=== PATIENT | female | born 1965 | race Caucasian/White ===

== ENCOUNTER 2020-10-13 21:14 | Emergency (ER) | payer OTHER ==
[2020-10-13 22:22] VITALS: BP 139/88; PULSE 94; RESP 20; TEMP 98.2
[2020-10-13 23:24] LABS: Appearance,Urine Clear (Clear); Basophils # (A) 0.1 k/uL (0-0.2); Basophils % (A) 1 %; Bilirubin,Urine Negative (Negative); Blood,Urine Negative (Negative); Color,Urine Light Yellow; Eosinophils # (A) 0.2 k/uL (0-0.7); Eosinophils % (A) 2 %; Glucose,Urine (UA) 4+ (Negative); HCT 46.4 % (34.0-46.0); HGB 16.8 gm/dL (11.4-16.0); Ketones,Urine 1+ (Negative); Leukocyte Esterase,Urine Negative (Negative); Lymphocytes # (A) 4.2 k/uL (1.0-4.8); Lymphocytes % (A) 36 %; MCH 32.4 pg (25.0-35.0); MCHC 36.3 g/dL (31.0-37.0); MCV 89.2 fL (80.0-100.0); Mean Platelet Volume 7.6; Monocytes # (A) 0.7 k/uL (0-1.0); Monocytes % (A) 6 %; Neutrophils # (A) 6.1 k/uL (1.3-7.7); Neutrophils % (A) 53 %; Nitrite,Urine Negative (Negative); PH, Urine 5.5 (5.0-8.0); Platelet Count 336 k/uL (150-450); Protein,Urine Negative (Negative); RBC 5.21 m/uL (3.80-5.40); RDW 11.7 % (11.5-15.5); Urobilinogen,Urine <2.0 mg/dL (<2.0); WBC 11.6 k/uL (3.8-10.6)
--- NOTE | 2020-10-13 23:30 | ED ---
Abdominal Pain HPI - General Chief Complaint: Abdominal Pain Stated Complaint: Stomach pains Time Seen by Provider: 10/13/20 22:49 Source: patient Mode of arrival: ambulatory Limitations: no limitations - History of Present Illness Initial Comments: This patient is 55-year-old woman presenting to be evaluated for she states up to 6 months of upper abdominal pain area the pain has been worse over the past few days. She states that she also has had a change in stool recently. She is having mostly liquid bowel movements. She states the pain is worse after she eats. SHe hasn't noticed any relieving factors. MD Complaint: abdominal pain Onset/Timin -: month(s) Location: LUQ, RUQ, epigastric Radiation: none Migration to: no migration Severity: moderate Quality: aching Consistency: constant Improves With: nothing Worsens With: eating - Related Data Previous Rx's Medication Instructions Recorded Dicyclomine [Bentyl] 20 mg PO QID #15 tablet 10/14/20 Allergies Allergy/AdvReac Type Severity Reaction Status Date / Time guaifenesin [From Robitussin] Allergy Swelling Verified 10/13/20 22:23 Review of Systems ROS Statement: Those systems with pertinent positive or pertinent negative responses have been documented in the HPI. ROS Other: All systems not noted in ROS Statement are negative. Constitutional: Denies: fever, chills Respiratory: Denies: cough, dyspnea Cardiovascular: Denies: chest pain, palpitations, edema Gastrointestinal: Reports: abdominal pain, nausea, diarrhea. Denies: vomiting, constipation, melena, hematochezia Genitourinary: Denies: dysuria, frequency, hematuria Musculoskeletal: Denies: back pain Skin: Denies: rash Neurological: Denies: headache, weakness, numbness Past Medical History Past Medical History: Diabetes Mellitus, Hyperlipidemia, Hypertension History of Any Multi-Drug Resistant Organisms: None Reported Past Surgical History: Section, Hysterectomy Additional Past Surgical History / Comment(s): lumpectomy Past Psychological History: Anxiety Smoking Status: Current every day smoker Past Alcohol Use History: None Reported Past Drug Use History: None Reported General Exam Limitations: no limitations General appearance: alert, in no apparent distress Head exam: Present: atraumatic, normocephalic Eye exam: Present: normal appearance. Absent: scleral icterus, conjunctival injection ENT exam: Present: normal oropharynx Neck exam: Present: normal inspection Respiratory exam: Present: normal lung sounds bilaterally. Absent: respiratory distress, wheezes, rales, rhonchi, stridor Cardiovascular Exam: Present: regular rate, normal rhythm, normal heart sounds. Absent: systolic murmur, diastolic murmur, rubs, gallop GI/Abdominal exam: Present: soft, tenderness (Is mild upper abdominal tenderness no rebound or guarding), normal bowel sounds. Absent: distended, guarding, rebound, rigid, organomegaly, mass, pulsatile mass, hernia Extremities exam: Present: normal inspection, normal capillary refill. Absent: pedal edema, calf tenderness Back exam: Present: normal inspection. Absent: CVA tenderness (R), CVA tenderness (L) Neurological exam: Present: alert Skin exam: Present: warm, dry, intact, normal color. Absent: rash Course Vital Signs 10/13/20 22:18 Temperature 98.2 F Pulse Rate 94 Respiratory 20 Rate Blood Pressure 139/88 O2 Sat by Pulse 98 Oximetry Medical Decision Making - Lab Data Result diagrams: 10/13/20 23:06 10/13/20 23:06 Lab Results 10/13/20 10/13/20 10/13/20 Range/Units 23:06 23:06 23:06 WBC 11.6 H (3.8-10.6) k/uL RBC 5.21 (3.80-5.40) m/uL Hgb 16.8 H (11.4-16.0) gm/dL Hct 46.4 H (34.0-46.0) % MCV 89.2 (80.0-100.0) fL MCH 32.4 (25.0-35.0) pg MCHC 36.3 (31.0-37.0) g/dL RDW 11.7 (11.5-15.5) % Plt Count 336 (150-450) k/uL MPV 7.6 Neutrophils % 53 % Lymphocytes % 36 % Monocytes % 6 % Eosinophils % 2 % Basophils % 1 % Neutrophils # 6.1 (1.3-7.7) k/uL Lymphocytes # 4.2 (1.0-4.8) k/uL Monocytes # 0.7 (0-1.0) k/uL Eosinophils # 0.2 (0-0.7) k/uL Basophils # 0.1 (0-0.2) k/uL Sodium 136 L (137-145) mmol/L Potassium 3.9 (3.5-5.1) mmol/L Chloride 98 (98-107) mmol/L Carbon Dioxide 24 (22-30) mmol/L Anion Gap 14 mmol/L BUN 18 H (7-17) mg/dL Creatinine 0.52 (0.52-1.04) mg/dL Est GFR (CKD-EPI)AfAm >90 (>60 ml/min/1.73 sqM) Est GFR (CKD-EPI)NonAf >90 (>60 ml/min/1.73 sqM) Glucose 332 H (74-99) mg/dL Calcium 10.8 H (8.4-10.2) mg/dL Total Bilirubin 0.6 (0.2-1.3) mg/dL AST 22 (14-36) U/L ALT 21 (4-34) U/L Alkaline Phosphatase 140 H (38-126) U/L Total Protein 7.7 (6.3-8.2) g/dL Albumin 4.8 (3.5-5.0) g/dL Amylase 75 (30-110) U/L Lipase 837 H (23-300) U/L Urine Color Light Yellow Urine Appearance Clear (Clear) Urine pH 5.5 (5.0-8.0) Ur Specific [place] 1.046 H (1.001-1.035) Urine Protein Negative (Negative) Urine Glucose (UA) 4+ H (Negative) Urine Ketones 1+ H (Negative) Urine Blood Negative (Negative) Urine Nitrite Negative (Negative) Urine Bilirubin Negative (Negative) Urine Urobilinogen <2.0 (<2.0) mg/dL Ur Leukocyte Esterase Negative (Negative) Disposition Clinical Impression: Abdominal pain, Hyperglycemia Disposition: HOME SELF-CARE Condition: Good Instructions (If sedation given, give patient instructions): Abdominal Pain (ED), Diabetic Hyperglycemia (ED) Additional Instructions: Today your lipase was 837, follow-up to have this rechecked and ensure that is returning to normal. Prescriptions: Dicyclomine [Bentyl] 20 mg PO QID #15 tablet Is patient prescribed a controlled substance at d/c from ED?: No Referrals: None,Stated [Primary Care Provider] - 1-2 days Taran Ford MD [STAFF PHYSICIAN] - 1-2 days
--- NOTE | 2020-10-13 23:32 | XR ---
EXAMINATION TYPE: XR KUB DATE OF EXAM: 10/13/2020 COMPARISON: NONE HISTORY: Abdominal pain TECHNIQUE: 2 views upright FINDINGS: There is no sign of intestinal obstruction or pneumoperitoneum. Fecal pattern is normal. Th ere is evidence of some infiltrate in the left lower lobe behind the heart. There are no pathologic c alcifications over the kidneys. IMPRESSION: Nonacute abdomen. There is evidence for some left lower lobe pneumonia.
[2020-10-13 23:33] LABS: ALT 21 U/L (4-34); AST 22 U/L (14-36); African American GFR (CKD) >90 (>60 ml/min/1.73 sqM); Albumin 4.8 g/dL (3.5-5.0); Alkaline Phosphatase 140 U/L (38-126); Amylase 75 U/L (30-110); Anion Gap 14 mmol/L; Blood Urea Nitrogen 18 mg/dL (7-17); Calcium 10.8 mg/dL (8.4-10.2); Carbon Dioxide 24 mmol/L (22-30); Chloride 98 mmol/L (98-107); Glucose 332 mg/dL (74-99); Lipase 837 U/L (23-300); Non-African American GFR(CKD) >90 (>60 ml/min/1.73 sqM); Potassium 3.9 mmol/L (3.5-5.1); Sodium 136 mmol/L (137-145); Total Bilirubin 0.6 mg/dL (0.2-1.3); Total Protein 7.7 g/dL (6.3-8.2)
[2020-10-13 23:37] LABS: Specific Gravity,Urine 1.046 (1.001-1.035)
--- NOTE | 2020-10-14 00:11 | US ---
EXAMINATION TYPE: US abdomen limited DATE OF EXAM: 10/13/2020 COMPARISON: NONE CLINICAL HISTORY: attention RUQ. bloated, constipated, stomach pains ongoing for days EXAM MEASUREMENTS: Liver Length: 20.7 cm Gallbladder Wall: 0.2 cm CBD: 0.4 cm Right Kidney: 11.9 x 4.7 x 5.6 cm Pancreas: wnl Liver: very difficult to penetrate with focal fatty sparring seen adjacent to GB Gallbladder: wnl Evidence for sonographic Echeverria's sign: YES CBD: wnl Right Kidney: wnl IMPRESSION: There is some tenderness over the gallbladder. No gallstones or dilated ducts. Fatty infiltration of the liver.
[2020-10-14] MEDS ORDERED: MORPHINE SULFATE 4 MG/ML SYRINGE IV STA (00:55)
--- NOTE | 2020-10-14 00:59 | CT ---
EXAM: CT Abdomen and Pelvis Without Intravenous Contrast CLINICAL HISTORY: ITS.REASON CT Reason: abdominal pain TECHNIQUE: Axial computed tomography images of the abdomen and pelvis without intravenous contrast. CTDI is 11.07 mGy and DLP is 594.30 mGy-cm. This CT exam was performed using one or more of the following dose reduction techniques: automated exposure control, adjustment of the mA and/or kV according to patient size, and/or use of iterative reconstruction technique. COMPARISON: Ultrasound from October 13, 2020 FINDINGS: Lung bases: Unremarkable. No mass. No consolidation. ABDOMEN: Liver: There is fatty infiltration of the liver and hepatomegaly with the liver measuring 20 cm craniocaudad. No focal liver lesion is seen. Gallbladder and bile ducts: Unremarkable. No calcified stones. No ductal dilation. Pancreas: Unremarkable. No ductal dilation. Spleen: Unremarkable. No splenomegaly. Adrenals: Unremarkable. No mass. Kidneys and ureters: Nonobstructive 3 mm calyceal calculus in the upper pole of the left kidney. No hydronephrosis or ureterolithiasis is seen. Stomach and bowel: Unremarkable. No obstruction. No mucosal thickening. PELVIS: Appendix: Normal appendix pattern. No acute inflammatory changes are seen involving the bowel. Bladder: There is a 7 mm calculus in the anterior aspect of the urinary bladder. The bladder is mostly decompressed without surrounding inflammation. Reproductive: Unremarkable as visualized. ABDOMEN and PELVIS: Intraperitoneal space: Unremarkable. No free air. No significant fluid collection. Bones/joints: Mild degenerative changes in the lower lumbar spine. No acute fracture is seen. No dislocation. Soft tissues: Unremarkable. Vasculature: The abdominal aorta is mildly calcified but nondilated. Lymph nodes: Unremarkable. No enlarged lymph nodes. IMPRESSION: There is fatty infiltration of the liver and hepatomegaly with the liver measuring 20 cm craniocaudad. No focal liver lesion is seen. Normal appendix is an unremarkable bowel gas pattern. No acute inflammatory changes are seen involving the bowel.
== END 2020-10-14 02:00 | disposition home or self-care (01) ==
LOC: EC 21:14
DX: E11.65 Type 2 diabetes mellitus with hyperglycemia (principal); R10.9 Unspecified abdominal pain; E78.5 Hyperlipidemia, unspecified; I10 Essential (primary) hypertension; F41.9 Anxiety disorder, unspecified; F17.200 Nicotine dependence, unspecified, uncomplicated
CPT/HCPCS: 36415; 80053; 82150; 83690; 85025; 81003; 74018; 76705; 74176; 99284; 96374; J2270

== ENCOUNTER → 2022-10-04 | Outpatient (CLI) | payer OTHER ==
[2022-10-04 11:17] LABS: Basophils # (A) 0.08 X 10*3/uL (0.00-0.10); Basophils % (A) 1.1 %; Eosinophils # (A) 0.19 X 10*3/uL (0.04-0.35); Eosinophils % (A) 2.5 %; HCT 41.6 % (37.2-46.3); Immature Grans, Automated 0.3 %; Lymphocytes # (A) 2.93 X 10*3/uL (0.90-5.00); MCH 31.3 pg (27.0-32.0); MCHC 33.7 g/dL (32.0-37.0); MCV 93.1 fL (80.0-97.0); Mean Platelet Volume 9.6 fL (9.5-12.2); Monocytes # (A) 0.62 X 10*3/uL (0.20-1.00); Monocytes % (A) 8.2 %; NRBC Per 100 WBC 0 /100 WBCS (0.0-0.0); Neutrophils # (A) 3.68 X 10*3/uL (1.80-7.70); Neutrophils % (A) 48.9 %; Platelet Count 325 X 10*3/uL (140-440); RBC 4.47 X 10*6/uL (4.10-5.20); RDW 12.2 % (11.5-14.5); WBC 7.52 X 10*3/uL (4.50-10.00)
[2022-10-04 11:45] LABS: ALT 17 U/L (8-44); AST 11 U/L (13-35); Albumin 4.3 g/dL (3.8-4.9); Albumin/Globulin Ratio 1.89 (1.60-3.17); Alkaline Phosphatase 85 U/L (41-126); BUN/Creat Ratio 17.25 Ratio (12.00-20.00); Blood Urea Nitrogen 11.4 mg/dL (9.0-27.0); Calcium 9.7 mg/dL (8.7-10.3); Carbon Dioxide 26.3 mmol/L (20.0-27.5); Chloride 109 mmol/L (96-109); Chol/HDL Ratio 4.61 Ratio; Globulin 2.3 g/dL (1.6-3.3); Glucose 191 mg/dL (70-110); LDL Cholesterol,Calculated 61.7 mg/dL (0.0-131.0); Non-African American GFR(CKD) 96.6 (60.0-200.0); Potassium 5.4 mmol/L (3.5-5.5); Sodium 144 mmol/L (135-145); Total Protein 6.6 g/dL (6.2-8.2)
== END | disposition home or self-care (01) ==
LOC: LABWHC1 08:54
PROVIDERS: ATTEND Family Medicine
DX: E11.65 Type 2 diabetes mellitus with hyperglycemia (principal)
CPT/HCPCS: 36415; 80053; 80061; 82306; 83036; 84439; 84443; 85025

== ENCOUNTER → 2022-11-05 | Outpatient (CLI) | payer OTHER ==
--- NOTE | 2022-11-06 07:33 | CA ---
Transthoracic Echo Report Name: Suyapa Mckeon Age: 57 Gender: F : 1965 Exam Date: 11/05/2022 15:06 Exam Location: [facility] Ht (in): 64 Wt (lb): 163 Ordering Physician: Avelino Hair MD Attending/Referring Phys: Avelino Hair MD [employer] Counter Clerk Jessie Caballero, [facility] Procedure CPT: Indications: i10 Cardiac Hx: Technical Quality: Fair Contrast 1: Total Dose (mL): Contrast 2: Total Dose (mL): MEASUREMENTS (Male / Female) Normal Values 2D ECHO LV Diastolic Diameter PLAX 5.2 cm 4.2 - 5.9 / 3.9 - 5.3 cm LV Systolic Diameter PLAX 3.2 cm IVS Diastolic Thickness 1.2 cm 0.6 - 1.0 / 0.6 - 0.9 cm LVPW Diastolic Thickness 1.1 cm 0.6 - 1.0 / 0.6 - 0.9 cm LV Relative Wall Thickness 0.4 RV Internal Dim ED PLAX 3.1 cm LA Systolic Diameter LX 3.6 cm 3.0 - 4.0 / 2.7 - 3.8 cm LA Volume 44.3 cm??? 18 - 58 / 22 - 52 cm??? M-MODE Aortic Root Diameter MM 3.0 cm AV Cusp Separation MM 2.1 cm DOPPLER AV Peak Velocity 160.3 cm/s AV Peak Gradient 10.3 mmHg MV Area PHT 3.0 cm??? Mitral E Point Velocity 75.6 cm/s Mitral A Point Velocity 106.3 cm/s Mitral E to A Ratio 0.7 MV Deceleration Time 255.1 ms MV E' Velocity 8.4 cm/s Mitral E to MV E' Ratio 9.0 FINDINGS Left Ventricle Left ventricular ejection fraction is estimated at 55-60 %. Left ventricular cavity size normal. Mildly increased septal wall thickness. Mildly increased posterior wall thickness. Right Ventricle Normal right ventricular size and function. No TR unable to estimate the right ventricular systolic pressure. Right Atrium Normal right atrial size. Left Atrium Normal left atrial size. Mitral Valve Mitral valve thickened. No mitral stenosis, or prolapse.trace to mild mitral regurgitation. Aortic Valve Trileaflet aortic valve. No aortic valve stenosis or regurgitation. Tricuspid Valve Structurally normal tricuspid valve. No tricuspid stenosis, regurgitation or prolapse. Pulmonic Valve No pulmonic regurgitation.pulmonic valve not well visualized. Pericardium Normal pericardium. No pericardial effusion. Aorta Normal size aortic root and proximal ascending aorta. CONCLUSIONS 1. Normal ventricle size and systolic function with left ventricular hypertrophy 2. Trace to mild mitral regurgitation 3. No Pericardial effusion Previewed by: Dr. Timothy Kelly MD (Electronically Signed) Final Date: 06 Nov 2022 07:32
== END | disposition home or self-care (01) ==
LOC: RADECHMAIN 14:59
PROVIDERS: ATTEND Family Medicine
DX: I10 Essential (primary) hypertension (principal); M79.89 Other specified soft tissue disorders; I51.7 Cardiomegaly; I34.0 Nonrheumatic mitral (valve) insufficiency; R00.2 Palpitations
CPT/HCPCS: 93306

== ENCOUNTER → 2022-11-07 | Outpatient (CLI) | payer OTHER ==
--- NOTE | 2022-11-14 13:21 | P.HOLTER ---
48 Hour Holter monitor note: Patient wore a Holter monitor for 48 hrs from 11/07/2022 through 11/08/2022. Findings: Patient's baseline heart rate was normal sinus rhythm. There were no signficant atrial fibrillation, atrial flutter, or ventricular tachycardia episodes. There were no significant pauses greater than 2 seconds. Patient's minimum heart rate was 54. Patient's maximum heart rate was 98. Patient's average heart rate was 73. There were 3 patient activated events which corresponded with normal sinus rhythm There were rare PACs and rare PVCs representing 0.6% PVC burden. There were 5 brief SVT episodes lasting maximum of 6 beats and one ventricular triplet which were asymptomatic. Conclusions: 48 hour Holter monitor showing normal sinus rhythm with occasional PACs and PVCs as well as brief runs of SVT and 1 episode of 3 beat run of ventricular tachycardia.
--- NOTE | 2022-11-17 10:40 | HM ---
7 Day Event monitor note: Patient wore an event monitor for 7 days from 11/03/2022 through 11/10/2022. Findings: Patient's baseline heart rate was sinus rhythm. There were no significant atrial fibrillation, atrial flutter, or ventricular tachycardia episodes. There were no significant pauses greater than 2 seconds. There were a total of 79 patient activated and automatically captured events corresponding with sinus rhythm and sinus tachycardia. One of the dizzy episodes corresponded with 1 PVC. There were rare PACs and rare PVCs. Conclusions: 7 day event monitor showing normal sinus rhythm and sinus tachycardia. Patient activated events corresponding predominantly with sinus rhythm and sinus tachycardia and once with a loan PVC. [facility]
== END | disposition home or self-care (01) ==
LOC: RADECHMAIN 07:28
PROVIDERS: ATTEND Family Medicine
DX: I47.20 Ventricular tachycardia, unspecified (principal); R00.2 Palpitations; I10 Essential (primary) hypertension
CPT/HCPCS: 93225; 93226

== ENCOUNTER 2024-10-06 14:48 | Observation (INO) | payer OTHER ==
[2024-10-06] MEDS: ASPIRIN 81 MG PO STA (15:38)
[2024-10-06] MEDS: SODIUM CHLORIDE 0.9% 1,000 ML IV STA (15:38)
[2024-10-06 15:54] LABS: Basophils # (A) 0.1 k/uL (0-0.2); Basophils % (A) 1 %; Eosinophils # (A) 0.1 k/uL (0-0.7); Eosinophils % (A) 2 %; HCT 43.5 % (34.0-46.0); HGB 15.1 gm/dL (11.4-16.0); Lymphocytes # (A) 2.5 k/uL (1.0-4.8); Lymphocytes % (A) 31 %; MCH 32.1 pg (25.0-35.0); MCHC 34.7 g/dL (31.0-37.0); MCV 92.6 fL (80.0-100.0); Mean Platelet Volume 7.8; Monocytes # (A) 0.5 k/uL (0-1.0); Monocytes % (A) 6 %; Neutrophils # (A) 4.9 k/uL (1.3-7.7); Neutrophils % (A) 60 %; Platelet Count 325 k/uL (150-450); RDW 12.4 % (11.5-15.5); WBC 8.2 k/uL (3.8-10.6)
--- NOTE | 2024-10-06 16:05 | XR ---
EXAMINATION TYPE: XR chest 2V DATE OF EXAM: 10/06/2024 3:56 PM COMPARISON: None CLINICAL INDICATION: Female, 59 years old with history of Chest Pain; [facility] TECHNIQUE: XR chest 2V Frontal and lateral views of the chest. FINDINGS: Lungs/Pleura: There is no evidence of pleural effusion, focal consolidation, or pneumothorax. Pulmonary vascularity: Unremarkable. Heart/mediastinum: Cardiomediastinal silhouette is unremarkable. Musculoskeletal: No acute osseous pathology. IMPRESSION: No acute cardiopulmonary disease/process. [facility], , 10/06/2024 4:03 PM
[2024-10-06 16:09] LABS: ALT 18 U/L (4-34); AST 18 U/L (14-36); African American GFR (CKD) >90 (>60 ml/min/1.73 sqM); Albumin 4.4 g/dL (3.5-5.0); Alkaline Phosphatase 112 U/L (38-126); Amylase 48 U/L (30-110); Anion Gap 12 mmol/L; Blood Urea Nitrogen 14 mg/dL (7-17); Calcium 9.6 mg/dL (8.4-10.2); Carbon Dioxide 21 mmol/L (22-30); Chloride 103 mmol/L (98-107); Glucose 302 mg/dL (74-99); Lipase 205 U/L (23-300); Magnesium 1.5 mg/dL (1.6-2.3); Non-African American GFR(CKD) >90 (>60 ml/min/1.73 sqM); Sodium 136 mmol/L (137-145); Total Bilirubin 0.5 mg/dL (0.2-1.3)
[2024-10-06 16:16] LABS: INR 0.9 (<1.2); Prothrombin Time 9.9 sec (10.0-12.5)
[2024-10-06 16:18] LABS: NT-Pro-B-Type Natriuretic Pept 23 pg/mL
[2024-10-06 16:25] LABS: Appearance,Urine Cloudy (Clear); Bacteria,Urine Many /hpf; Bilirubin,Urine Negative (Negative); Blood,Urine Negative (Negative); Color,Urine Colorless; Glucose,Urine (UA) 4+ (Negative); Ketones,Urine Negative (Negative); Leukocyte Esterase,Urine Negative (Negative); Mucus,Urine Rare /hpf; Nitrite,Urine Negative (Negative); Protein,Urine Negative (Negative); RBC,Urine <1 /hpf (0-5); Specific Gravity,Urine 1.013 (1.001-1.035); Squamous Epithelial Cell,Urine 3 /hpf (0-4); Urobilinogen,Urine <2.0 mg/dL (<2.0); WBC,Urine 2 /hpf (0-5)
[2024-10-06 16:27] LABS: Partial Thromboplastin Time 21.4 sec (22.0-30.0)
[2024-10-06] MEDS: MAGNESIUM SULFATE-D5W PMX 1 GM in DEXTROSE/WATER 1 100ML.BAG IVPB ONE (16:33)
[2024-10-06] MEDS ORDERED: NALOXONE 0.4 MG/ML 1 ML VIAL IV PRN (17:08)
[2024-10-06] MEDS ORDERED: ACETAMINOPHEN TAB 325 MG TAB PO PRN (17:08)
[2024-10-06] MEDS ORDERED: ONDANSETRON 4 MG/2 ML VIAL IVP PRN (17:08)
--- NOTE | 2024-10-06 17:08 | ED ---
General Adult HPI - General Chief complaint: Chest Pain Stated complaint: Chest Pain Time Seen by Provider: 10/06/24 15:15 Source: patient, RN notes reviewed, old records reviewed Mode of arrival: ambulatory Limitations: no limitations - History of Present Illness Initial comments: Patient is a 59-year-old female who presents to the emergency department complaining of chest pain. Patient has a past medical history markable for diabetes, hypertension, hyperlipidemia. Also has a family history of cardiac disease. States that at approximately 1:30 PM she began experiencing a severe pressure sensation in the middle of her chest with radiation to her back. States that it subsided on its own since then. No known palliative or provocative factors. States she did not break out into a sweat and did not experience much nausea but did have some mild nausea. No emesis. No fevers or chills or cough. No significant exertion. No history of cardiac stents. No other acute complaints at this time. Presents for further evaluation at this time.States pain was approximately 5 out of 10 earlier and is currently 1 out of 10 at most. - Related Data Home Medications Medication Instructions Recorded Confirmed Atorvastatin [Lipitor] 40 mg PO HS 10/06/24 10/06/24 Metoprolol Succinate (ER) [Toprol 100 mg PO DAILY 10/06/24 10/06/24 Xl] lisinopriL 40 mg PO DAILY 10/06/24 10/06/24 metFORMIN HCL [Glucophage] 1,000 mg PO BID 10/06/24 10/06/24 sitaGLIPtin [Januvia] 100 mg PO DAILY 10/06/24 10/06/24 Allergies Allergy/AdvReac Type Severity Reaction Status Date / Time guaifenesin [From Robitussin] Allergy Swelling Verified 10/06/24 17:23 Review of Systems ROS Statement: Those systems with pertinent positive or pertinent negative responses have been documented in the HPI. Review of Systems: CONST: Denies fever EYES: Denies blurry vision ENT: Denies nasal congestion C/V: Endorses 1 out of 10 chest pain substernal. RESP: Denies shortness of breath GI: Denies abdominal pain : Denies dysuria SKIN: Denies rash. MSK: Denies joint pain. NEURO: Denies headache ROS Other: All systems not noted in ROS Statement are negative. Past Medical History Past Medical History: Diabetes Mellitus, Hyperlipidemia, Hypertension History of Any Multi-Drug Resistant Organisms: None Reported Past Surgical History: Section, Hysterectomy Additional Past Surgical History / Comment(s): lumpectomy Past Psychological History: Anxiety Smoking Status: Current every day smoker Past Alcohol Use History: None Reported Past Drug Use History: None Reported General Exam - General Exam Comments Initial Comments: General: Appears in no acute distress. HEAD: Normal with no signs of head trauma. EYES: PERRLA, EOMI, conjunctiva normal, no discharge. ENT: Hearing grossly intact, normal oropharynx. RESPIRATORY: Clear breath sounds bilaterally. No wheezes, rales, or rhonchi. C/V: Regular rate and rhythm. S1 and S2 auscultated, no edema, peripheral pulses 2+ and intact throughout. Chest pain is not reproducible on palpation. ABD: Abd is soft, nontender, nondistended EXT: Normal range of motion, no obvious deformity SKIN: No rashes or lesions observed on exposed skin. NEURO: Alert and oriented x 4. Limitations: no limitations Course Vital Signs 10/06/24 10/06/24 14:50 15:20 Temperature 98.5 F Pulse Rate 79 66 Respiratory 16 12 Rate Blood Pressure 149/82 129/70 O2 Sat by Pulse 97 96 Oximetry Medical Decision Making - Medical Decision Making Was pt. sent in by a medical professional or institution (, PA, FIRE MANAGEMENT TECHNICIAN, urgent care, hospital, or prison...) When possible be specific @ -No Did you speak to anyone other than the patient for history (EMS, parent, family, police, friend...)? What history was obtained from this source @ -No Did you review nursing and triage notes (agree or disagree)? Why? @ -I reviewed and agree with nursing and triage notes Were old charts reviewed (outside hosp., previous admission, EMS record, old EKG, old radiological studies, urgent care reports/EKG's, prison records)? Report findings @ -No old charts were reviewed Differential Diagnosis (chest pain, altered mental status, abdominal pain women, abdominal pain men, vaginal bleeding, weakness, fever, dyspnea, syncope, headache, dizziness, GI bleed, back pain, seizure, CVA, palpatations, mental health, musculoskeletal)? @ -Differential Chest Pain: Stable Angina, Unstable Angina, STEMI, NSTEMI Aortic Dissection, Pneumothorax, Musculoskeletal, Esophageal Spasm GERD, Cholecystitis, Pancreatitis, Zoster, this is not meant to be an all-inclusive list. EKG interpreted by me (3pts min.). @ -As above X-rays interpreted by me (1pt min.). @ -Chest x-ray reveals no obvious acute cardiopulmonary process. CT interpreted by me (1pt min.). @ -None done U/S interpreted by me (1pt. min.). @ -None done What testing was considered but not performed or refused? (CT, X-rays, U/S, labs)? Why? @ -None What meds were considered but not given or refused? Why? @ -None Did you discuss the management of the patient with other professionals (professionals i.e. , PA, FIRE MANAGEMENT TECHNICIAN, lab, RT, psych nurse, social services technician, train announcer, teacher, radiation safety officer, outsole caser)? Give summary @ -Discussed with TANYA Pruitt [facility] or accepted the admission. Was smoking cessation discussed for >3mins.? @ -No Was critical care preformed (if so, how long)? @ -No Were there social determinants of health that impacted care today? How? (Homelessness, low income, unemployed, alcoholism, drug addiction, transportation, low edu. Level, literacy, decrease access to med. care, fci, rehab)? @ -No Was there de-escalation of care discussed even if they declined (Discuss DNR or withdrawal of care, Hospice)? DNR status @ -No What co-morbidities impacted this encounter? (DM, HTN, Smoking, COPD, CAD, C ancer, CVA, ARF, Chemo, Hep., AIDS, mental health diagnosis, sleep apnea, morbid obesity)? @ -Hypertension, hyperlipidemia, diabetes Was patient admitted / discharged? Hospital course, mention meds given and route, prescriptions, significant lab abnormalities, going to OR and other pertinent info. @ -Presents emergency department complaining of sudden onset of chest pain approximately 1330 today. Pain is currently a 1 out of 10 and is almost resolved on its own. Vital signs within acceptable limits. We will obtain cardiac workup. Patient will be given 324 mg of aspirin. Patient started on IV fluids. Patient was offered a nitroglycerin sublingual but by the time it was offered, patient's pain had resolved. EKG shows no signs of acute ischemia. Chest x-ray reveals no obvious acute cardiopulmonary process. Laboratory studies are remarkable for hypomagnesemia of 1.5. Troponin is undetectable. Remainder the workup remarkable for mild hyperglycemia in the setting of diabetes but no other obvious process. I discussed results with the patient. Patient's heart score is moderate at 4. Patient will be admitted to the hospital for cardiac observation. Echo ordered. Cardiology consulted. Troponins will be trended. Patient was in agreement this plan. Patient was given IV magnesium. I spoke with the admitting provider, [facility]. Undiagnosed new problem with uncertain prognosis? @ -No Drug Therapy requiring intensive monitoring for toxicity (Heparin, Nitro, Insulin, Cardizem)? @ -No Were any procedures done? @ -No Diagnosis/symptom? @ -Chest pain Acute, or Chronic, or Acute on Chronic? @ -Acute Uncomplicated (without systemic symptoms) or Complicated (systemic symptoms)? @ -Complicated Side effects of treatment? @ -No Exacerbation, Progression, or Severe Exacerbation? @ -No Poses a threat to life or bodily function? How? (Chest pain, [place], [place], pneumonia, PE, COPD, DKA, ARF, appy, cholecystitis, CVA, Diverticulitis, Homicidal, Suicidal, threat to staff... and all critical care pts) @ -Potentially, yes - Lab Data Result diagrams: 10/06/24 15:28 10/06/24 15:28 Lab Results 10/06/24 10/06/24 10/06/24 Range/Units 15:28 15:28 15:28 WBC 8.2 (3.8-10.6) k/uL RBC 4.70 (3.80-5.40) m/uL Hgb 15.1 (11.4-16.0) gm/dL Hct 43.5 (34.0-46.0) % MCV 92.6 (80.0-100.0) fL MCH 32.1 (25.0-35.0) pg MCHC 34.7 (31.0-37.0) g/dL RDW 12.4 (11.5-15.5) % Plt Count 325 (150-450) k/uL MPV 7.8 Neutrophils % 60 % Lymphocytes % 31 % Monocytes % 6 % Eosinophils % 2 % Basophils % 1 % Neutrophils # 4.9 (1.3-7.7) k/uL Lymphocytes # 2.5 (1.0-4.8) k/uL Monocytes # 0.5 (0-1.0) k/uL Eosinophils # 0.1 (0-0.7) k/uL Basophils # 0.1 (0-0.2) k/uL PT 9.9 L (10.0-12.5) sec INR 0.9 (<1.2) APTT 21.4 L (22.0-30.0) sec D-Dimer 0.50 (<0.60) mg/L FEU Sodium 136 L (137-145) mmol/L Potassium 4.0 (3.5-5.1) mmol/L Chloride 103 (98-107) mmol/L Carbon Dioxide 21 L (22-30) mmol/L Anion Gap 12 mmol/L BUN 14 (7-17) mg/dL Creatinine 0.47 L (0.52-1.04) mg/dL Est GFR (CKD-EPI)AfAm >90 (>60 ml/min/1.73 sqM) Est GFR (CKD-EPI)NonAf >90 (>60 ml/min/1.73 sqM) Glucose 302 H (74-99) mg/dL POC Glucose (mg/dL) (70-110) mg/dL POC Glu Adjunct History Instructor ID Calcium 9.6 (8.4-10.2) mg/dL Magnesium 1.5 L (1.6-2.3) mg/dL Total Bilirubin 0.5 (0.2-1.3) mg/dL AST 18 (14-36) U/L ALT 18 (4-34) U/L Alkaline Phosphatase 112 (38-126) U/L Troponin I (0.000-0.034) ng/mL NT-Pro-B Natriuret Pep 23 pg/mL Total Protein 7.0 (6.3-8.2) g/dL Albumin 4.4 (3.5-5.0) g/dL Amylase 48 (30-110) U/L Lipase 205 (23-300) U/L Urine Color Urine Appearance (Clear) Urine pH (5.0-8.0) Ur Specific Swain (1.001-1.035) Urine Protein (Negative) Urine Glucose (UA) (Negative) Urine Ketones (Negative) Urine Blood (Negative) Urine Nitrite (Negative) Urine Bilirubin (Negative) Urine Urobilinogen (<2.0) mg/dL Ur Leukocyte Esterase (Negative) Urine RBC (0-5) /hpf Urine WBC (0-5) /hpf Ur Squamous Epith Cells (0-4) /hpf Urine Bacteria (None) /hpf Urine Mucus (None) /hpf 10/06/24 10/06/24 10/06/24 Range/Units 15:28 15:30 17:32 WBC (3.8-10.6) k/uL RBC (3.80-5.40) m/uL Hgb (11.4-16.0) gm/dL Hct (34.0-46.0) % MCV (80.0-100.0) fL MCH (25.0-35.0) pg MCHC (31.0-37.0) g/dL RDW (11.5-15.5) % Plt Count (150-450) k/uL MPV Neutrophils % % Lymphocytes % % Monocytes % % Eosinophils % % Basophils % % Neutrophils # (1.3-7.7) k/uL Lymphocytes # (1.0-4.8) k/uL Monocytes # (0-1.0) k/uL Eosinophils # (0-0.7) k/uL Basophils # (0-0.2) k/uL PT (10.0-12.5) sec INR (<1.2) APTT (22.0-30.0) sec D-Dimer (<0.60) mg/L FEU Sodium (137-145) mmol/L Potassium (3.5-5.1) mmol/L Chloride (98-107) mmol/L Carbon Dioxide (22-30) mmol/L Anion Gap mmol/L BUN (7-17) mg/dL Creatinine (0.52-1.04) mg/dL Est GFR (CKD-EPI)AfAm (>60 ml/min/1.73 sqM) Est GFR (CKD-EPI)NonAf (>60 ml/min/1.73 sqM) Glucose (74-99) mg/dL POC Glucose (mg/dL) 288 H (70-110) mg/dL POC Glu Adjunct History Instructor ID Michael A Hilda Calcium (8.4-10.2) mg/dL Magnesium (1.6-2.3) mg/dL Total Bilirubin (0.2-1.3) mg/dL AST (14-36) U/L ALT (4-34) U/L Alkaline Phosphatase (38-126) U/L Troponin I <0.012 (0.000-0.034) ng/mL NT-Pro-B Natriuret Pep pg/mL Total Protein (6.3-8.2) g/dL Albumin (3.5-5.0) g/dL Amylase (30-110) U/L Lipase (23-300) U/L Urine Color Colorless Urine Appearance Cloudy H (Clear) Urine pH 5.0 (5.0-8.0) Ur Specific Swain 1.013 (1.001-1.035) Urine Protein Negative (Negative) Urine Glucose (UA) 4+ H (Negative) Urine Ketones Negative (Negative) Urine Blood Negative (Negative) Urine Nitrite Negative (Negative) Urine Bilirubin Negative (Negative) Urine Urobilinogen <2.0 (<2.0) mg/dL Ur Leukocyte Esterase Negative (Negative) Urine RBC <1 (0-5) /hpf Urine WBC 2 (0-5) /hpf Ur Squamous Epith Cells 3 (0-4) /hpf Urine Bacteria Many H (None) /hpf Urine Mucus Rare H (None) /hpf - EKG Data -: EKG Interpreted by Me EKG Comments: 12-lead Electrocardiogram Interpretation Note EKG was reviewed and interpreted by myself. 12-lead ECG performed at 1459 is interpreted by me as revealing normal sinus rhythm at a rate of 71 beats per minute. [place] is normal. [place] interval is 176 ms, QRS durations 102 ms. QTc is 397 ms.. There were no ST or T wave abnormalities to suggest myocardial ischemia or injury. R wave progression across the precordium was satisfactory. By my interpretation this EKG is non-diagnostic for acute ischemia. Disposition Clinical Impression: Chest pain, Hypomagnesemia Disposition: ADMITTED IP TO THIS HOSP Condition: Stable Referrals: Avelino Hair MD [Primary Care Provider] - 1-2 days Time of Disposition: 16:55
[2024-10-06] MEDS: NITROGLYCERIN SL TABS 0.4 MG TAB SUBLINGUAL STA (17:16)
[2024-10-06] MEDS ORDERED: DEXTROSE 50% SYRINGE 50 ML IVP PRN ×2 (17:20)
[2024-10-06 17:33] LABS: Glucose,Whole Blood 288 mg/dL (70-110)
[2024-10-06] MEDS: SODIUM CHLORIDE 0.9% 1,000 ML IV SCH (17:37)
[2024-10-06] MEDS: INSULIN LISPRO (HumaLOG) 100 UNIT/ML 10 mL VL SQ SCH (17:38)
--- NOTE | 2024-10-06 18:12 | P.HPIM ---
History of Present Illness H&P Date: 10/06/24 History of Presenting Illness: Patient is a pleasant 59-year-old female with a past medical history of type II [id number] diabetes mellitus, hypertension, hyperlipidemia, and nicotine dependence. She reports she has been out of her medications for the last few months and just had refilled yesterday. She presented to the emergency department with a chief complaint of chest pain. 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 She reports the pain was an intense pressure and lasted for approximately 40 to 45 minutes prior to resolving without interv ention. She reports during this time she felt some dizziness/lightheadedness, difficulty concentrating and her mouth became extremely dry. She denies having any headache, changes in vision or hearing, palpitations, shortness of breath, cough or congestion, recent illness or fever, diaphoresis, or experiencing any numbness/tingling/weakness/swelling in her extremities. Upon arrival to our facility, patient underwent evaluation in the emergency department. Vital signs upon arrival show blood pressure 149/82, heart rate 79, respiratory rate 16, temp 98.5 F, and SpO2 of 97% on room air. EKG was completed showing normal sinus rhythm at 71 bpm with T wave inversion in inferior leads III and aVF upon personal review and interpretation. Chest x-ray completed negative for acute cardiopulmonary process. Labs completed and reviewed. CBC unremarkable. Coagulation profile showing a low PTT of 9.9 and a low PTT of 21.4. D-dimer was negative at 0.50. BMP showing mild hypocarbia with bicarb of 21 and slightly elevated anion gap of 12 with elevated blood glucose of 302. Calcium was normal at 9.6. Magnesium was low at 1.5. Liver profile unremarkable. Troponin was negative at less than 0.012 and proBNP was 23. Amylase and lipase were dings. Patient was given aspirin 324 mg p.o. x 1 dose and magnesium was replaced. She was admitted under our services with consultation to cardiology. Review of systems: Pertinent positives and negatives as discussed in HPI, a complete review of systems was performed and all other systems are negative. Physical exam: Vital signs reviewed and stable. General: Nontoxic, no distress and appears stated age. Derm: Skin warm and dry, normal coloration for ethnicity. Head: Atraumatic, normocephalic and symmetric. Eyes: EOM's intact, no lid lag, and anicteric sclera Mouth: no lip lesions, mucus membranes moist Cardiovascular: regular rate and rhythm with normal S1S2, no murmur, positive posterior tibial pulses bilaterally, and cap refill < 2 seconds. Lungs: Respirations even, regular, and unlabored on room air. Lungs CTA bilaterally, no rhonchi, no rales, no wheezing, and no accessory muscle usage. Abdominal: soft, nontender to palpation, no guarding, no appreciable organomegaly Ext: ROM intact. No gross muscle atrophy, no edema, no contractures Neuro: Speech clear, face symmetrical and CN II-XII grossly intact with no noted focal neuro deficits Psych: Alert and oriented to person, place, time, and situation. Appropriate and pleasant affect. Assessment and Plan of Care: Chest pain, rule out acute coronary event Hypertension Hyperlipidemia -HEART score is 5 -Cardiology consulted, appreciate recommendations -Telemetry monitoring -Trend troponins -Cardiac diet, NPO at midnight -Aspirin 81 mg daily, atorvastatin 40 mg nightly, lisinopril 40 mg daily, and metoprolol succinate 100 mg daily. -Lipid profile and hemoglobin A1c with a.m. labs. -Echocardiogram Type II [id number] diabetes mellitus with hyperglycemia -Hold metformin and Januvia and patient placed on glycemic protocol with Humalog sliding scale. Follow-up on hemoglobin A1c results. Hypomagnesemia -Replaced in the emergency department, will follow-up with repeat morning magnesium level and replace abnormal electrolyte values as indicated based upon these findings Nicotine dependence -Recommend smoking cessation. Order placed for nicotine patch 14 mg daily. Data and imaging reviewed: -As stated above in HPI The patient is admitted with an anticipated less than 2 midnight stay for evaluation of chest pain. CODE STATUS: Full code DVT prophylaxis: Lovenox Discussed with: Patient and ED provider. Anticipated discharge date: 24 to [address]: Home Patient was seen independently by Nurse Practitioner. This document was prepared using [employer] dictation software. Please allow for errors in weaving supervisor while rare they do occur. Jonathan Borja NP rendered care for this patient independently, reviewed the findings and plan as documented in the note above and agree with plan. I did not physically speak with or examine the patient on this date. Past Medical History Past Medical History: Diabetes Mellitus, Hyperlipidemia, Hypertension History of Any Multi-Drug Resistant Organisms: None Reported Past Surgical History: Section, Hysterectomy Additional Past Surgical History / Comment(s): lumpectomy Past Psychological History: Anxiety Smoking Status: Current every day smoker Past Alcohol Use History: None Reported Past Drug Use History: None Reported Medications and Allergies Home Medications Medication Instructions Recorded Confirmed Type Atorvastatin [Lipitor] 40 mg PO HS 10/06/24 10/06/24 History Metoprolol Succinate (ER) [Toprol 100 mg PO DAILY 10/06/24 10/06/24 History Xl] lisinopriL 40 mg PO DAILY 10/06/24 10/06/24 History metFORMIN HCL [Glucophage] 1,000 mg PO BID 10/06/24 10/06/24 History sitaGLIPtin [Januvia] 100 mg PO DAILY 10/06/24 10/06/24 History Allergies Allergy/AdvReac Type Severity Reaction Status Date / Time guaifenesin [From Robitussin] Allergy Swelling Verified 10/06/24 17:23 Physical Exam Vitals: Vital Signs Temp Pulse Resp BP Pulse Ox 10/06/24 15:20 66 12 129/70 96 10/06/24 14:50 98.5 F 79 16 149/82 97 Intake and Output 10/06/24 10/06/24 10/06/24 06:59 14:59 22:59 Other: Weight 74.843 kg Results CBC & Chem 7: 10/06/24 15:28 10/06/24 15:28 Labs: Abnormal Lab Results - Last 24 Hours (Table) 10/06/24 10/06/24 10/06/24 Range/Units 15:28 15:28 15:30 PT 9.9 L (10.0-12.5) sec APTT 21.4 L (22.0-30.0) sec Sodium 136 L (137-145) mmol/L Carbon Dioxide 21 L (22-30) mmol/L Creatinine 0.47 L (0.52-1.04) mg/dL Glucose 302 H (74-99) mg/dL Magnesium 1.5 L (1.6-2.3) mg/dL Urine Appearance Cloudy H (Clear) Urine Glucose (UA) 4+ H (Negative) Urine Bacteria Many H (None) /hpf Urine Mucus Rare H (None) /hpf
[2024-10-06] MEDS: NICOTINE 14MG/24HR PATCH TRANSDERM SCH (18:52)
[2024-10-06 20:18] LABS: Glucose,Whole Blood 357 mg/dL (70-110)
[2024-10-06] MEDS: ATORVASTATIN 40 MG TAB PO SCH (20:19)
[2024-10-07 06:25] LABS: Glucose,Whole Blood 318 mg/dL (70-110)
[2024-10-07 07:54] VITALS: BP 121/67; PULSE 65; RESP 16; TEMP 97.7
[2024-10-07] MEDS ORDERED: DOBUTamine DRIP for NUC MED 500 MG/250 ML BAG IV ONE (08:00)
[2024-10-07 08:42] LABS: ALT 13 U/L (8-44); AST 13 U/L (13-35); Albumin 3.5 g/dL (3.8-4.9); Albumin/Globulin Ratio 1.75 Ratio (1.60-3.17); Alkaline Phosphatase 95 U/L (41-126); Blood Urea Nitrogen 12.5 mg/dL (9.0-27.0); Calcium 8.7 mg/dL (8.7-10.3); Carbon Dioxide 23.5 mmol/L (21.6-31.8); Chloride 107 mmol/L (96-109); Chol/HDL Ratio 8.14 Ratio; Glucose 330 mg/dL (70-110); Magnesium 1.7 mg/dL (1.5-2.4); Potassium 4.3 mmol/L (3.5-5.5); Sodium 139 mmol/L (135-145); Total Bilirubin <0.2 mg/dL (0.3-1.2); Total Protein 5.5 g/dL (6.2-8.2)
[2024-10-07 08:45] LABS: HCT 37.7 % (37.2-46.3); HGB 12.7 g/dL (12.0-15.0); MCH 31.8 pg (27.0-32.0); MCHC 33.7 g/dL (32.0-37.0); MCV 94.5 FL (80.0-97.0); Mean Platelet Volume 10.3 FL (9.5-12.2); NRBC Per 100 WBC 0 X 10*3/uL (0.00-0.01); Platelet Count 268 X 10*3/uL (140-440); RBC 3.99 X 10*6/uL (4.10-5.20); RDW 12.1 % (11.5-14.5); WBC 6.31 X 10*3/uL (4.50-10.00)
[2024-10-07 08:46] LABS: Basophils # (A) 0.06 X 10*3/uL (0.00-0.10); Eosinophils # (A) 0.19 X 10*3/uL (0.04-0.35); Lymphocytes # (A) 2.89 X 10*3/uL (0.90-5.00); Lymphocytes % (A) 45.8 %; Monocytes # (A) 0.59 X 10*3/uL (0.20-1.00); Monocytes % (A) 9.4 %; Neutrophils # (A) 2.57 X 10*3/uL (1.80-7.70); Neutrophils % (A) 40.6 %
[2024-10-07] MEDS ORDERED: DOBUTamine DRIP for NUC MED 500 MG in DEXTROSE/WATER 1 250ML.BAG IV PRN (08:58)
[2024-10-07] MEDS: EZETIMIBE 10 MG TAB PO SCH (09:59)
[2024-10-07] MEDS: lisinopriL 20 MG TAB PO SCH (09:59)
[2024-10-07] MEDS: ENOXAPARIN 40 MG/0.4 ML SYRINGE SQ SCH (09:59)
[2024-10-07] MEDS: ASPIRIN 81 MG PO SCH (09:59)
[2024-10-07] MEDS: METOPROLOL SUCCINATE (ER) 100 MG TAB.ER.24H PO SCH (10:00)
--- NOTE | 2024-10-07 10:43 | P.CRDCN ---
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 She has a past medical history of uncontrolled diabetes type 2, hypertension, hyperlipidemia, active tobacco use and dependence. We have been asked to evaluate the patient for chest pain. Patient states that she has been not taking her medications for a while but now not taking her statin at nighttime because she forgets. Patient presented with midsternal chest pain. She states she was on the phone and not doing anything strenuous or stressful at the time. The pain was in the midsternal area went straight to her back. It occurred while she was at work. She then developed dizziness and some nausea that only lasted a few seconds. The chest pain lasted about 30 minutes and went away on its own. 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 She denies any shortness of breath. She denies shortness of breath with activity. No chest pain with activity. No recent fever or chills. She did have upper respiratory infection about a month ago. She does not check her blood pressures at home. Blood pressure 121/67, heart rate 65, pulse ox 98% on room air. Patient has been started on her home cardiac medications as well as nicotine patch and is status post magnesium replacement. -EKG: Sinus rhythm with T wave inversions nonspecific changes. -Chest x-ray: No acute process. -Laboratory studies: CBC is unremarkable. Electrolytes are normal. Creatinine 0.5. Hemoglobin A1c is 13 troponin negative x 3. proBNP 23, triglycerides 608, cholesterol 227, LDL 117, HDL 27. -Home cardiac medications: Atorvastatin 40 mg at bedtime, lisinopril 40 mg daily, metoprolol succinate 100 mg daily, also on Januvia 100 mg daily. Review Of Systems: At the time of my exam: CONSTITUTIONAL: Denies fever or chills. HEENT: Denies blurred vision, vision changes, or eye pain. Denies hemoptysis CARDIOVASCULAR: Denies chest pain. Denies orthopnea. Denies PND. Denies pa lpitations RESPIRATORY: Denies shortness of breath. GASTROINTESTINAL: Denies abdominal pain. Denies nausea or vomiting. HEMATOLOGIC: Denies bleeding disorders. GENITOURINARY: Denies any blood in urine. SKIN: Denies puritis. Denies rash. Physical examination: Gen: This is a 59-year-old female in no acute distress. VS: reviewed HEENT: Head is atraumatic, normocephalic. Pupils equal, round. Sclerae is anicteric. NECK: Supple. No JVD. LUNGS: Clear to auscultation. No wheezes or rhonchi. No intercostal retractions. HEART: Regular rate and rhythm. No murmur. ABDOMEN: Soft No tenderness. EXTREMITIES: No pedal edema. No calf tenderness. NEUROLOGICAL: Patient is awake, alert and oriented x3. Assessment: Atypical chest pain, acute coronary syndrome ruled out Uncontrolled diabetes mellitus type 2 with A1c 13 Hypertension Hyperlipidemia Hypertriglyceridemia Tobacco use and dependence Plan: Continue patient's home cardiac medications Add Zetia 10 mg daily Obtain dobutamine stress echocardiogram today Obtain 2-D echocardiogram and Doppler study to assess cardiac structure and function Obtain LDL direct Patient has been told to take all of her cardiac medications including atorvastatin in the morning Smoking cessation. Patient will be provided the [place] quit line information at discharge. If stress testing is unremarkable, patient is cleared for discharge and may follow-up in the office with Dr. Tamayo in 1 week. Thank you kindly for this consultation. Nurse practitioner note has been reviewed, I agree with documented findings and plan of care. Patient was seen and examined. Past Medical History Past Medical History: Diabetes Mellitus, Hyperlipidemia, Hypertension History of Any Multi-Drug Resistant Organisms: None Reported Past Surgical History: Section, Hysterectomy Additional Past Surgical History / Comment(s): lumpectomy Past Psychological History: Anxiety Smoking Status: Current every day smoker Past Alcohol Use History: None Reported Past Drug Use History: None Reported Medications and Allergies Home Medications Medication Instructions Recorded Confirmed Type Atorvastatin [Lipitor] 40 mg PO HS 10/06/24 10/06/24 History Metoprolol Succinate (ER) [Toprol 100 mg PO DAILY 10/06/24 10/06/24 History Xl] lisinopriL 40 mg PO DAILY 10/06/24 10/06/24 History metFORMIN HCL [Glucophage] 1,000 mg PO BID 10/06/24 10/06/24 History sitaGLIPtin [Januvia] 100 mg PO DAILY 10/06/24 10/06/24 History Allergies Allergy/AdvReac Type Severity Reaction Status Date / Time guaifenesin [From Elvinitussin] Allergy Swelling Verified 10/06/24 17:23 Physical Exam Vitals: Vital Signs Temp Pulse Pulse Resp BP BP Pulse Ox 10/07/24 07:00 97.7 F 65 16 121/67 98 10/07/24 02:04 98.2 F 72 15 121/64 96 10/06/24 21:38 98.6 F 68 15 124/76 95 10/06/24 20:36 98.2 F 64 16 132/79 96 10/06/24 18:54 66 14 115/75 95 10/06/24 15:20 66 12 129/70 96 10/06/24 14:50 98.5 F 79 16 149/82 97 Intake and Output 10/06/24 10/07/24 10/07/24 22:59 06:59 14:59 Other: Voiding Method Toilet # Voids 1 2 Weight 74.843 kg Results 10/07/24 05:45 10/07/24 05:45 Cardiac Enzymes 10/06/24 10/06/24 10/06/24 Range/Units 15:28 15:28 18:34 AST 18 (14-36) U/L Troponin I <0.012 <0.012 (0.000-0.034) ng/mL 10/06/24 10/07/24 Range/Units 22:54 05:45 AST 13 (14-36) U/L Troponin I <0.012 (0.000-0.034) ng/mL Coagulation 10/06/24 Range/Units 15:28 PT 9.9 L (10.0-12.5) sec APTT 21.4 L (22.0-30.0) sec Lipids 10/07/24 Range/Units 05:45 Triglycerides 608.00 H (0.00-149.00) mg/dL Cholesterol 227.00 H (0.00-200.00) mg/dL HDL Cholesterol 27.90 L (40.00-60.00) mg/dL Cholesterol/HDL Ratio 8.14 Ratio CBC 10/06/24 10/07/24 Range/Units 15:28 05:45 WBC 8.2 6.31 (3.8-10.6) k/uL RBC 4.70 3.99 L (3.80-5.40) m/uL Hgb 15.1 12.7 (11.4-16.0) gm/dL Hct 43.5 37.7 (34.0-46.0) % Plt Count 325 268 (150-450) k/uL Comprehensive Metabolic Panel 10/06/24 10/07/24 Range/Units 15:28 05:45 Sodium 136 L 139 (137-145) mmol/L Potassium 4.0 4.3 (3.5-5.1) mmol/L Chloride 103 107 (98-107) mmol/L Carbon Dioxide 21 L 23.5 (22-30) mmol/L BUN 14 12.5 (7-17) mg/dL Creatinine 0.47 L 0.5 L (0.52-1.04) mg/dL Glucose 302 H 330 H (74-99) mg/dL Calcium 9.6 8.7 (8.4-10.2) mg/dL AST 18 13 (14-36) U/L ALT 18 13 (4-34) U/L Alkaline Phosphatase 112 95 (38-126) U/L Total Protein 7.0 5.5 L (6.3-8.2) g/dL Albumin 4.4 3.5 L (3.5-5.0) g/dL Current Medications Generic Name Dose Route Start Last Admin Trade Name Freq PRN Reason Stop Dose Admin Acetaminophen 650 mg 10/06/24 17:08 Acetaminophen Tab 325 Mg Tab PO Q6HR PRN Mild Pain or Fever > 100.5 Aspirin 81 mg 10/07/24 09:00 Aspirin 81 Mg PO DAILY PARISA Atorvastatin Calcium 40 mg 10/06/24 21:00 10/06/24 20:19 Atorvastatin 40 Mg Tab PO 40 mg HS PARISA Administration Dextrose/Water 25 ml 10/06/24 17:20 Dextrose 50% Syringe 50 Ml IVP PER PROTOCOL PRN Hypoglycemia Protocol Dextrose/Water 50 ml 10/06/24 17:20 Dextrose 50% Syringe 50 Ml IVP PER PROTOCOL PRN Hypoglycemia Protocol Enoxaparin Sodium 40 mg 10/07/24 09:00 Enoxaparin 40 Mg/0.4 Ml Syringe SQ DAILY PARISA Sodium Chloride 1,000 mls @ 75 mls/hr 10/06/24 17:15 10/07/24 06:33 Saline 0.9% IV 75 mls/hr .[id number] PARISA Administration Insulin Human Lispro 0 unit 10/06/24 17:30 10/07/24 06:30 Insulin Lispro (Humalog) 100 Unit/Ml 10 Ml Vl SQ 4 unit ACHS PARISA Administration Protocol Lisinopril 40 mg 10/07/24 09:00 Lisinopril 20 Mg Tab PO DAILY PARISA Metoprolol Succinate 100 mg 10/07/24 09:00 Metoprolol Succinate (Er) 100 Mg Tab.Er.24h PO DAILY PARISA Naloxone HCl 0.2 mg 10/06/24 17:08 Naloxone 0.4 Mg/Ml 1 Ml Vial IV Q2M PRN Opioid Reversal Nicotine 1 patch 10/06/24 18:30 10/06/24 18:52 Nicotine 14mg/24hr Patch TRANSDERM 1 patch DAILY PARISA Administration Ondansetron HCl 4 mg 10/06/24 17:08 Ondansetron 4 Mg/2 Ml Vial IVP Q8HR PRN Nausea And Vomiting Intake and Output 10/06/24 10/07/24 10/07/24 22:59 06:59 14:59 Other: Voiding Method Toilet # Voids 1 2 Weight 74.843 kg 10/07/24 05:45 10/07/24 05:45
--- NOTE | 2024-10-07 11:52 | CA ---
Transthoracic Echo Report Name: Suyapa Mckeon Age: 59 Gender: F : 1965 Exam Date: 10/07/2024 08:06 Exam Location: [facility] Ht (in): 64 Wt (lb): 165 Ordering Physician: Leo Cruz MD Attending/Referring Phys: Professor Of Marketing Randal Lopez RDCS Procedure CPT: Indications: Chest Pain Cardiac Hx: Technical Quality: Good Contrast 1: Total Dose (mL): Contrast 2: Total Dose (mL): MEASUREMENTS (Male / Female) Normal Values 2D ECHO LV Diastolic Diameter PLAX 5.5 cm 4.2 - 5.9 / 3.9 - 5.3 cm LV Systolic Diameter PLAX 3.7 cm IVS Diastolic Thickness 0.8 cm 0.6 - 1.0 / 0.6 - 0.9 cm LVPW Diastolic Thickness 0.9 cm 0.6 - 1.0 / 0.6 - 0.9 cm LV Relative Wall Thickness 0.3 RV Internal Dim ED PLAX 3.2 cm LVOT Diameter 1.5 cm LA Systolic Diameter LX 3.9 cm 3.0 - 4.0 / 2.7 - 3.8 cm LV Diastolic Volume MOD BP 113.0 cm??? 67 - 155 / 56 - 104 cm??? LV Systolic Volume MOD BP 43.1 cm??? 22 - 58 / 19 - 49 cm??? LV Ejection Fraction MOD BP 61.9 % >= 55 % LV Diastolic Volume MOD 4C 126.5 cm??? LV Systolic Volume MOD 4C 50.7 cm??? LV Ejection Fraction MOD 4C 59.9 % LV Diastolic Length 4C 8.4 cm LV Systolic Length 4C 6.7 cm LV Diastolic Volume MOD 2C 99.1 cm??? LV Systolic Volume MOD 2C 33.2 cm??? LV Ejection Fraction MOD 2C 66.5 % LV Diastolic Length 2C 8.2 cm LV Systolic Length 2C 6.1 cm LA Volume 78.0 cm??? 18 - 58 / 22 - 52 cm??? LA Volume Index 42.0 cm???/m??? 16 - 28 cm???/m??? DOPPLER AV Peak Velocity 126.9 cm/s AV Peak Gradient 6.4 mmHg AV Mean Velocity 89.3 cm/s AV Mean Gradient 3.5 mmHg AV Velocity Time Integral 30.5 cm MV Area PHT 3.8 cm??? Mitral E Point Velocity 82.0 cm/s Mitral A Point Velocity 86.7 cm/s Mitral E to A Ratio 0.9 MV Deceleration Time 197.8 ms TR Peak Velocity 215.2 cm/s TR Peak Gradient 18.5 mmHg Right Atrial Pressure 15.0 mmHg Pulmonary Artery Systolic Pressu 33.5 mmHg Right Ventricular Systolic Press 33.5 mmHg FINDINGS Left Ventricle Left ventricular ejection fraction is estimated at 60%. Mildly increased left ventricular diastolic diameter. Mildly increased left ventricular diastolic volume. Normal left ventricular systolic function with no obvious regional wall motion abnormalities. Right Ventricle Moderate right ventricular dilatation. Right ventricular systolic pressure within normal limits. Right Atrium Moderate right atrial dilatation. Left Atrium Severely increased left atrial volume. Mildly increased left atrial area. Mitral Valve Structurally normal mitral valve. No mitral stenosis. Trace mitral regurgitation. Aortic Valve Trileaflet aortic valve.Aortic valve sclerosis. No aortic stenosis. No aortic regurgitation. Tricuspid Valve Structurally normal tricuspid valve. No tricuspid stenosis. Trace tricuspid regurgitation. Pulmonic Valve Structurally normal pulmonic valve. No pulmonic stenosis. Trace pulmonic regurgitation. Pericardium No pericardial or pleural effusion. Aorta Normal size aortic root and proximal ascending aorta. CONCLUSIONS Indication: Chest pain, hypertension Mildly dilated LV with normal LV systolic function Mild RV enlargement Left atrial enlargement Previewed by: Dr. Kodak Tamayo MD (Electronically Signed) Final Date: 07 October 2024 11:51
[2024-10-07 12:44] LABS: Glucose,Whole Blood 284 mg/dL (70-110)
--- NOTE | 2024-10-07 13:06 | CA ---
Dobutamine Stress Echocardiogram Report Suyapa Mckeon Age: 59 Gender: F : 1965 Exam Date: 10/07/2024 11:37 Exam Location: [facility] Ordering Physician: Maris Thakkar Referring Physician: Bijan DE LOS SANTOS Scalper Operator: EVELYN Technologist: Ht (in): 64 Wt (lb): 165 Procedure CPT: Indication: CP w contrast ICD-9 Codes: Rhythm: Patient History: CP, PALP, NUMB BACK, HTN, DM, HIGH CHOL, FEMILY HX, CURRENT TOB. Cardiac Medications: SEE CHART,,,,, Medications in past 24 hours: Contrast: Total Dose (mL): Stress Results Protocol: Peak Dose (???g/kg/min): Duration (min:sec): Atropine:(mg) Target HR: 135 Double Product: [id number] Resting HR: 75 Resting BP: 130 / 73 Peak HR: 147 Peak BP: 194 / 54 Max Predicted HR: 159 92 % Max Predicted HR Stress Summary: BP Response: Reason for Termination: MAX EXERTION/TARGET HR Cardiac Symptoms: NO SYMPTOMS ECG Analysis Resting EKG: Stress EKG: Arrhythmia: Echo Analysis Base Echo Analysis: Low Echo Anaylsis: Peak Echo Analysis: Recovery Echo: MEASUREMENTS (Male/Female) Normal Values CONCLUSIONS Indication: Chest discomfort diabetes hypertension history of smoking Average exercise capacity, 9.3 METS of workload achieved, 7 minutes 51 seconds on a Catalino protocol Normal heart rate and blood pressure response No ECG or echocardiographic evidence for ischemia Dr. Kodak Tamayo MD (Electronically Signed) Final Date: 07 October 2024 13:05
--- NOTE | 2024-10-07 13:54 | P.DS ---
Providers Date of admission: 10/06/24 17:11 Expected date of discharge: 10/07/24 Attending physician: Perry Galeana Consults: 10/06/24 17:08 Consult Physician Routine Consulting Provider: [facility] Consult Reason/Comments: chest pain Do you want consulting provider notified?: Yes Primary care physician: Avelino Hair MD Hospital Course: Discharge Diagnosis: Chest pain, acute coronary event ruled out. Troponins trended all negative at less than 0.012 x 3 draws. Echocardiogram showing preserved EF of 60% with mild right ventricular enlargement and left atrial enlargement. Patient reports continued resolution of chest pain since arrival to our facility. She was evaluated by cardiology and underwent dobutamine stress testing. Dobutamine stress test negative showing no ECG or echocardiographic epic evidence for ischemia. Patient medically optimized and cleared from cardiac perspective for discharge. 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 Hypertension. Continue daily medication regimen with lisinopril 40 mg daily and metoprolol 100 mg daily. Hyperlipidemia. Lipid profile showing triglycerides of 608.00, total cholesterol of 227.00, VLDL of 121.60, and a low HDL of 27.90. Patient to continue atorvastatin 40 mg nightly and was started on Zetia 10 mg daily in addition. Type II [id number] diabetes mellitus with hyperglycemia. Hemoglobin A1c 13%. Patient already on metformin and Januvia. After discussion with patient and she denies any history or family history of thyroid cancer, patient started on Rybelsus 3 mg daily. Dose to be titrated upward by her PCP. Patient educated on the importance of following a heart healthy and carb consistent diet. Hypomagnesemia, resolved. Nicotine dependence. Recommend smoking cessation. Hospital Course: Patient is a pleasant 59-year-old female with a past medical history of type II [id number] diabetes mellitus, hypertension, hyperlipidemia, and nicotine dependence. She reports she has been out of her medications for the last few months and just had refilled yesterday. She presented to the emergency department with a chief complaint of chest pain. 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 She reports the pain was an intense pressure and lasted for approximately 40 to 45 minutes prior to resolving without intervention. She reports during this time she felt some dizziness/lightheadedness, difficulty concentrating and her mouth became extremely dry. She denies having any headache, changes in vision or hearing, palpitations, shortness of breath, cough or congestion, recent illness or fever, diaphoresis, or experiencing any numbness/tingling/weakness/swelling in her extremities. Upon arrival to our facility, patient underwent evaluation in the emergency department. Vital signs upon arrival show blood pressure 149/82, heart rate 79, respiratory rate 16, temp 98.5 F, and SpO2 of 97% on room air. EKG was completed showing normal sinus rhythm at 71 bpm with T wave inversion in inferior leads III and aVF upon personal review and interpretation. Chest x-ray completed negative for acute cardiopulmonary process. Labs completed and reviewed. CBC unremarkable. Coagulation profile showing a low PTT of 9.9 and a low PTT of 21.4. D-dimer was negative at 0.50. BMP showing mild hypocarbia with bicarb of 21 and slightly elevated anion gap of 12 with elevated blood glucose of 302. Calcium was normal at 9.6. Magnesium was low at 1.5. Liver profile unremarkable. Troponin was negative at less than 0.012 and proBNP was 23. Amylase and lipase were dings. Patient was given aspirin 324 mg p.o. x 1 dose and magnesium was replaced. She was admitted under our services with consultation to cardiology.Troponins trended overnight all negative at less than 0.012 x 3 draws. Hemoglobin A1c elevated at 13%. Lipid profile showing triglycerides of 608.00, total cholesterol of 227.00, VLDL of 121.60, and a low HDL of 27.90. Echocardiogram showing preserved EF of 60% with mild right ventricular enlargement and left atrial enlargement. Patient reports continued resolution of chest pain since arrival to our facility. She was evaluated by cardiology and underwent dobutamine stress testing. Dobutamine stress test neg ative showing no ECG or echocardiographic epic evidence for ischemia. Patient medically optimized and cleared from cardiac perspective for discharge. 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 Physical exam: Vital signs reviewed and stable. General: Nontoxic, no distress and appears stated age. Derm: Skin warm and dry, normal coloration for ethnicity. Head: Atraumatic, normocephalic and symmetric. Eyes: EOM's intact, no lid lag, and anicteric sclera Mouth: no lip lesions, mucus membranes moist Cardiovascular: regular rate and rhythm with normal S1S2, no murmur, positive posterior tibial pulses bilaterally, and cap refill < 2 seconds. Lungs: Respirations even, regular, and unlabored on room air. Lungs CTA bilaterally, no rhonchi, no rales, no wheezing, and no accessory muscle usage. Abdominal: soft, nontender to palpation, no guarding, no appreciable organomegaly Ext: ROM intact. No gross muscle atrophy, no edema, no contractures Neuro: Speech clear, face symmetrical and CN II-XII grossly intact with no noted focal neuro deficits Psych: Alert and oriented to person, place, time, and situation. Appropriate and pleasant affect. A total of 34 minutes of time were spent preparing this complex discharge summary. Pt was discharged on 10/07/24 at 1:48 PM Patient was seen independently by Nurse Practitioner. This document was prepared using [employer] dictation software. Please allow for errors in welding equipment repairer supervisor while rare they do occur. Jonathan Borja NP rendered care for this patient independently, reviewed the findings and plan as documented in the note above. I did not physically speak with or examine the patient on this date. Patient Condition at Discharge: Stable Plan - Discharge Summary New Discharge Prescriptions: New Aspirin 81 mg PO DAILY 30 Days #30 tab Semaglutide [Rybelsus] 3 mg PO DAILY 30 Days #30 tab Ezetimibe [Zetia] 10 mg PO DAILY 30 Days #30 tab Continue sitaGLIPtin [Januvia] 100 mg PO DAILY lisinopriL 40 mg PO DAILY Metoprolol Succinate (ER) [Toprol XL] 100 mg PO DAILY metFORMIN HCL [Glucophage] 1,000 mg PO BID Atorvastatin [Lipitor] 40 mg PO HS Discharge Medication List Atorvastatin [Lipitor] 40 mg PO HS 10/06/24 [History] Metoprolol Succinate (ER) [Toprol XL] 100 mg PO DAILY 10/06/24 [History] lisinopriL 40 mg PO DAILY 10/06/24 [History] metFORMIN HCL [Glucophage] 1,000 mg PO BID 10/06/24 [History] sitaGLIPtin [Januvia] 100 mg PO DAILY 10/06/24 [History] Aspirin 81 mg PO DAILY 30 Days #30 tab 10/07/24 [Rx] Ezetimibe [Zetia] 10 mg PO DAILY 30 Days #30 tab 10/07/24 [Rx] Semaglutide [Rybelsus] 3 mg PO DAILY 30 Days #30 tab 10/07/24 [Rx] Follow up Appointment(s)/Referral(s): Kodak Tamayo MD [STAFF PHYSICIAN] - 1 Week Avelino Hair MD [Primary Care Provider] - 1-2 days Patient Instructions/Handouts: Chest Pain (DC), Diabetes and Nutrition (DC), Type 2 Diabetes Management for Adults (DC) Activity/Diet/Wound Care/Special Instructions: Activity: As tolerated. Take breaks as needed. Diet: Heart healthy and carb consistent diet. Special Instructions: Take all of your medications as directed and remember to keep all of your doctor's appointments and follow-up as needed. Your hemoglobin A1c is very elevated at 13%. It is of utmost importance to take medications as directed and follow the carb consistent and heart healthy diet as advised. He will need a repeat hemoglobin A1c in 6 months to ensure improvement. Thank you for allowing us to participate in your care, it was truly a pleasure having you for our patient!!! Discharge Disposition: HOME SELF-CARE
[2024-10-07 14:11] VITALS: BMI 28.3
== END 2024-10-07 15:15 | disposition home or self-care (01) ==
LOC: EC 14:48 → 6NMEDSUR 17:11
PROVIDERS: ADMIT Student in an Organized Health Care Education/Training Program; ATTEND Student in an Organized Health Care Education/Training Program
DX: R07.89 Other chest pain (principal); E11.65 Type 2 diabetes mellitus with hyperglycemia; I10 Essential (primary) hypertension; E78.1 Pure hyperglyceridemia; E83.42 Hypomagnesemia; F41.9 Anxiety disorder, unspecified; F17.200 Nicotine dependence, unspecified, uncomplicated; Z79.84 Long term (current) use of oral hypoglycemic drugs; Z79.899 Other long term (current) drug therapy; Z82.49 Family history of ischemic heart disease and other diseases of the circulatory system
CPT/HCPCS: 96372; 96361; 96365; 99285; 36415; 93005; 93306; 93351; 85379; 83880; 80061; 80053 ×2; 82150; 83690; 83735 ×2; 84484; 85025 ×2; 85610; 85730; 81001; 83721; 83036; 71046; G0378 ×2; S4990 ×2; J1650; J3475